=== PATIENT | female | born 1935 | race Caucasian/White ===

== ENCOUNTER → 2018-08-22 10:52 | Outpatient (CLI) | payer MEDICARE, SELFPAY ==
--- NOTE | 2018-08-22 | DI.US.S_ITS ---
PROCEDURE: US ABDOMEN COMPLETE INDICATIONS: EPIGASTRIC PAIN TECHNIQUE: Real-time scanning was performed of the abdominal and retroperitoneal organs, with image documentation. COMPARISON: None. FINDINGS: Liver: Liver is normal in size and homogeneous in echotexture. Gallbladder: Surgically absent. Biliary ducts: Intrahepatic bile ducts are non-dilated. Extrahepatic bile duct caliber measures 6.8 mm. Normal is 6-7 mm or less in diameter, or 10 mm or less post-cholecystectomy. Pancreas: Visualized portions of the pancreas are sonographically normal. Spleen: Spleen is normal in size and homogeneous in echotexture. Kidneys: Left kidney surgically absent. Normal right kidney measuring 11.1 cm. Aorta: Visualized aorta is normal in caliber at less than 3 cm. Iliacs: Proximal common iliac arteries are normal in caliber at less than 2.5 cm. IVC: Intrahepatic inferior vena cava is patent. Miscellaneous: No free abdominal fluid. IMPRESSION: No source for abdominal bloating and epigastric pain identified. Dictated by: Omega Wills [facility] Interpreted: Elicia Sierra MD on 08/22/2018 at 11:54 Approved by: Elicia Sierra MD, PhD on 08/22/2018 at 12:23
== END ==
PROVIDERS: Family Provider Family Medicine; PCP Family Medicine; Visit Provider Family Medicine
DX: R10.13 Epigastric pain (principal); Z90.49 Acquired absence of other specified parts of digestive tract
CPT/HCPCS: 76700

== ENCOUNTER → 2019-01-28 10:47 | Outpatient (CLI) | payer MEDICARE, SELFPAY ==
--- NOTE | 2019-01-28 10:49 | DI.RAD.S_ITS ---
PROCEDURE: FL UPPER GI W AIR INDICATIONS: dysphagia, reflux COMPARISON: None. FINDINGS: KUB: Preprocedural machine adjuster leader film demonstrates a normal bowel gas pattern. No suspicious abdominal calcifications. Visualized solid organ contours appear normal. Bony structures appear unremarkable. Esophagus: Esophageal mucosa is normal on air-contrast views. On single-contrast views, there is delayed esophageal peristalsis. No strictures, extrinsic mass effects, or diverticula. No hiatal hernia. There was spontaneous gastroesophageal reflux to the level of the lower third of the esophagus. Stomach: There is poor gaseous distention of the stomach. No gross mucosal masses or ulcers. Pylorus and duodenal bulb appear normal in morphology. Duodenal folds are grossly normal. Incidentally noted duodenal diverticulum IMPRESSION: Esophageal dysmotility. Spontaneous gastroesophageal reflux. Incidentally noted subcentimeter duodenal diverticulum Dictated by: Richy Moya M.D. on 01/28/2019 at 13:21 Approved by: Richy Moya M.D. on 01/28/2019 at 13:26
== END ==
PROVIDERS: PCP Family Medicine; Visit Provider Surgery
DX: R13.10 Dysphagia, unspecified (principal); K22.4 Dyskinesia of esophagus; K21.9 Gastro-esophageal reflux disease without esophagitis; K57.10 Diverticulosis of small intestine without perforation or abscess without bleeding
CPT/HCPCS: 74247

== ENCOUNTER 2019-04-06 16:10 | Emergency (ER) | payer MEDICARE, SELFPAY ==
[2019-04-06 16:33] VITALS: BP 184/91; PULSE 84; RESP 14; TEMP 37.1; O2SAT 99
--- NOTE | 2019-04-06 16:38 | ED.WEAKNESS ---
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 Her main concerns were generalized weakness, nausea, chills, dizziness which started 2.5-3 weeks ago, she felt worse last 3 days. 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 She reports she had small amount of diarrhea about twice a day for last 5 days. She denies blood in in stool but has been bothersome on her hemorrhoids. She also reports urinary urgency, frequency, feeling of incomplete bladder emptying, some discomfort in epigastric area and low abdomen. She had prescribed Keflex by at [facility] to use it as needed for her frequent UTI symptoms but she reports had not use the medication. Her current medication is bony ranitidine for the GERD, and GI dysmotility but has not taking this medication for last 2 days due to nausea. She denies fever, vomiting, flank pain, Chest pain, dyspnea. Related Data Home Medications Medication Instructions Recorded Confirmed VITAMIN D 400 iu PO #0 12/05/11 10/17/18 estradiol [Estrace] 1 gm VAGINAL #0 03/09/17 10/17/18 [CRANBERRY] #0 04/22/17 03/12/18 ascorbic acid (vitamin C) PO 10/17/18 10/17/18 d-mannose PO 10/17/18 10/17/18 ranitidine 150 mg tablet 150 mg PO BID tab 10/17/18 10/17/18 Allergies Allergy/AdvReac Type Severity Reaction Status Date / Time amoxicillin [AMOXICILLIN] Allergy Intermediate Nausea, Unverified 10/17/18 11:16 dizziness, fever ciprofloxacin [From CIPRO] Allergy Mild Unverified 10/17/18 11:16 codeine [CODEINE] Allergy Mild stomach Unverified 10/17/18 11:16 pain, dizzy nitrofurantoin Allergy Mild H/A ear Unverified 10/17/18 11:16 [NITROFURANTOIN] pound, sweats, nausea and vomit Sulfa (Sulfonamide Allergy Mild Rash Unverified 10/17/18 11:16 Antibiotics) [SULFA (SULFONAMIDE ANTIBIOTICS)] Review of Systems <JOSE Gold - Last Filed: 04/07/19 01:04> Review of Systems General: See HPI HEENT: Denies sinus pain, ear pain, sore throat, difficulty swallowing. Reports dizziness. Respiratory: Denies dyspnea, cough, wheezing, hemoptysis, sputum. Cardiovascular: Denies chest pain, palpitations, orthopnea, edema. Gastrointestinal: Reports nausea without vomiting, epigastric and low abdominal pain, samall diarrhea for 5 days. Denies melena. : See HPI Musculoskeletal: Denies weakness, joint pain or bony pain, flank pain. Skin: Denies rash, skin lesions, or other. Neurologic: Reports weakness. Denies headache, numbness, change in speech, confusion, seizures, incoordination. Psychiatric: No concerning psychosocial issues. 12-point review of systems is negative except for those stated above. PFSH <JOSE Gold - Last Filed: 04/07/19 01:04> Medical History Anemia (Chronic) Asthma (Chronic) Bronchiectasis (Chronic) CTS (carpal tunnel syndrome) (Chronic) Hayfever (Chronic) Hearing loss (Chronic 2013) Kidney disease (Chronic 2009) Liver disease (Chronic) Osteoarthritis (Chronic 2009) Osteopenia (Chronic) Rosacea (Chronic) Tinnitus (Chronic) Trigger finger (Chronic) Vertigo (Chronic) Vestibular neuritis (Chronic 2013) Abnormal CXR (chest x-ray) (Resolved 1996) Actinic keratosis (Resolved) Colon polyps (Resolved 2006) Ductal carcinoma of right breast (Resolved 1999) Mumps (Resolved) Pneumonia (Resolved) Solitary pulmonary nodule on lung CT (Resolved 1996) Surgical History Anesthesia (Resolved) History of breast surgery (Resolved 1999) History of kidney surgery (Resolved 2015) History of shoulder surgery (Resolved 1995) Status post cholecystectomy (Resolved 1972) Status post hysterectomy (Resolved 1991) Status post knee surgery (Resolved 1997) Family History Grandfather Heart disease Grandmother Heart disease Grandmother Heart disease Father Lung cancer Alcoholism Grandfather Diabetes mellitus Mother History of hip surgery Stroke Social History marital status: household members: none Smoking Status: Never smoker alcohol intake: never substance use type: does not use Family History Grandfather Heart disease Grandmother Heart disease Grandmother Heart disease Father Lung cancer Alcoholism Grandfather Diabetes mellitus Mother History of hip surgery Stroke Social History marital status: household members: none Smoking Status: Never smoker alcohol intake: never substance use type: does not use Exam <JOSE Gold - Last Filed: 04/07/19 01:04> Narrative Exam Narrative: GEN: Alert, oriented x 3, well appearing and nourished, and in no acute distress. Head: Normal cephalic, atraumatic. No scalp or temporal tenderness, palpable mass or rash. EYES: Pupils are equal, round, and reactive to light and accommodation. Extraocular muscles are intact bilaterally. There is no subconjunctival hemorrhage, exudate and sclera non-icteric. ENT: Hearing difficluty. Nose without bleeding, purulent discharge. Facial sinuses nontender to palpate. Mucous membrane dry, no mucosal lesion. Throat without erythema, tonsillar hypertrophy or exudate. Uvula in midline, airway patent. Neck: Trachea in midline. No JVD, non-tender without lymphadenopathy. No masses or thyroid megaly. Supple, non-tender and meningeal signs. CARDIAC: Normal regular rate and rhythm without murmurs, gallops, or rubs. No chest wall tenderness. No peripheral edema, cyanosis or pallor. Capillary refill is less than 2 seconds. No carotid bruits. RESPIRATORY: Lungs are cleat to auscultate bilaterally. No cough, wheezes, rales, or rhonchi. No stridor, respiratory distress, increase work of breathing, or accessary muscle used. ABD: Abdomen soft, nontender and non-distended. No guarding or rebound tenderness to palpate. Bowel sounds are normal in all 4 quadrants. There is no palpable masses or organomegaly. EXT: all extremities with no loss of sensation, strength, effusion or edema. SKIN: Warm, dry, normal color for patient. No erythema, lesions or rash. BACK: Nontender without deformity or crepitance. No flank tenderness. NEUROLOGICAL: Alert and oriented to place, time and person. Sensation and motor function intact bilaterally. No facial droops, dysphasia. PSYCHIATRIC: Good judgement and reason, without hallucinations, abnormal affect or abnormal behaviors during the examination. Patient is not suicidal. Initial Vital Signs Initial Vital Signs: Vital Signs Temperature 98.8 F 04/06/19 16:33 Pulse Rate 84 04/06/19 16:33 Respiratory Rate 14 04/06/19 16:33 Blood Pressure 184/91 H 04/06/19 16:33 Pulse Oximetry 99 04/06/19 16:33 <Sherri Stewart DO - Last Filed: 04/11/19 08:04> Initial Vital Signs Initial Vital Signs: Vital Signs Temperature 98.8 F 04/06/19 16:33 Pulse Rate 84 04/06/19 16:33 Respiratory Rate 14 04/06/19 16:33 Blood Pressure 184/91 H 04/06/19 16:33 Pulse Oximetry 99 04/06/19 16:33 Course <David TdJOSE - Last Filed: 04/07/19 01:04> Course Narrative: The patient was able to void small amount and provided urine sample. The patient reports nausea as mildly improved after a dose of Zofran 4 mg IV. Today's lab tests shows BUN of 71, creatinine is 7, with significantly decreased GFR of 5.6 as compared to her previous renal function test 2 years ago. Her potassium is 4.7 with CO2 23. Discussed patient's case with Dr. Stewart who is attending ED physician and considered transfer the patient to higher acuity setting hospital for for further nephrology evaluation and possible dialysis. Orders Ordered: Discontinued Medications Sodium Chloride (Normal Saline 0.9%) 1,000 mls @ 1,000 mls/hr IV BOLUS ONE Stop: 04/06/19 17:36 Last Infusion: 04/06/19 18:17 Dose: 1,000 mls/hr Admin: 04/06/19 17:29 Dose: 1,000 mls/hr Ondansetron HCl (Zofran) 4 mg IV NOW ONE Stop: 04/06/19 16:39 Last Admin: 04/06/19 17:29 Dose: 4 mg Vital Signs - 8 hr 04/06/19 18:43 Pulse Rate 80 Respiratory Rate 14 Blood Pressure [Right Arm] 178/80 H Pulse Oximetry 97 <Sherri Stewart DO - Last Filed: 04/11/19 08:04> Orders Ordered: Discontinued Medications Sodium Chloride (Normal Saline 0.9%) 1,000 mls @ 1,000 mls/hr IV BOLUS ONE Stop: 04/06/19 17:36 Last Infusion: 04/06/19 18:17 Dose: 1,000 mls/hr Admin: 04/06/19 17:29 Dose: 1,000 mls/hr Ondansetron HCl (Zofran) 4 mg IV NOW ONE Stop: 04/06/19 16:39 Last Admin: 04/06/19 17:29 Dose: 4 mg Vital Signs - 8 hr 04/06/19 18:43 Pulse Rate 80 Respiratory Rate 14 Blood Pressure [Right Arm] 178/80 H Pulse Oximetry 97 MDM - Weakness <JOSE Gold - Last Filed: 04/07/19 01:04> Differential Diagnosis Differential diagnosis: Likely sepsis, dehydration and other (UTI, Acute renal failure) Medical Records Attestation: I reviewed the patient's medical records. Lab Data Attestation: I reviewed the patient's lab results. Result diagrams: 04/06/19 16:45 04/06/19 16:45 Lab Results 04/06/19 04/06/19 04/06/19 Range/Units 16:45 16:45 16:50 WBC 4.9 (4.5-11.0) X10^3/uL RBC 3.77 L (4.0-5.2) X10^6/uL Hgb 11.5 L (12.0-16.0) g/dL Hct 34.2 L (36-46) % MCV 90.5 (80-100) fL MCH 30.5 (26-34) PG MCHC 33.7 (30-36) % RDW 15.2 H (11.6-14.8) % Plt Count 304 (150-400) X10^3/uL Neut % (Auto) 69.2 (50-75) % Lymph % (Auto) 18.1 L (25-40) % Knox % (Auto) 11.3 (3-14) % Eos % (Auto) 0.9 L (2-4) % Baso % (Auto) 0.5 (0-2) % Neut # (Auto) 3400 (6333-0195) /uL Lymph # (Auto) 900 L (8065-4023) /uL Knox # (Auto) 600 (0-900) /uL Eos # (Auto) 0 (0-450) /uL Baso # (Auto) 0 (0-100) /uL Sodium 136 L (137-145) mmol/L Potassium 4.7 (3.4-5.1) mmol/L Chloride 98 (98-107) mmol/L Carbon Dioxide 23 (22-32) mmol/L BUN 71 H (7-17) mg/dL Creatinine 7.00 H (0.52-1.04) mg/dL Estimated GFR 5.6 L (>60) mL/min BUN/Creatinine Ratio 10.1 (6-22) Glucose 99 (80-110) mg/dL Lactate 0.8 (0.7-2.1) mmol/L Calcium 9.5 (8.4-10.2) mg/dL Total Bilirubin 0.6 (0.2-1.3) mg/dL AST 38 H (14-36) IU/L ALT 10 (9-52) IU/L Alkaline Phosphatase 67 (38-126) U/L Total Protein 8.1 (6.3-8.2) g/dL Albumin 4.4 (3.5-5.0) g/dL Globulin 3.7 (1.7-4.1) g/dL Albumin/Globulin Ratio 1.2 (1.0-2.8) Imaging Data Abdominal x-ray: Radiologist's impression: Ct Fallon 83 F [address] [address] XRay Report Signed Patient: Ct Fallon [facility]#: [id number] : 1935cct:[id number] Age/Sex: 83 / FDate of Service: 04/06/19 Loc: ED Accession Number: [id number] Procedure: XR abdomen 3V Ordering Provider: David Appiah PROCEDURE: XR ABDOMEN 3V INDICATIONS: acute renal failure, weakness TECHNIQUE: One view chest and two views of the abdomen were acquired. COMPARISON: None. FINDINGS: Surgical changes and devices: Surgical clips in the right axilla and breast. Cholecystectomy clip. Chest: Lungs are hyperinflated and there is increased interstitial markings bilaterally consistent with emphysematous change. No consolidation identified. No obvious mass. No pleural effusion or pneumothorax. Heart size is within normal limits. The aortic arch is tortuous. Abdomen: Bowel gas pattern is nonobstructive. No suspicious calcifications. Visualized solid organ contours appear normal. Bones: No suspicious bony lesions. Mild lumbar spine scoliosis. IMPRESSION: 1. No acute cardiopulmonary abnormality. 2. Nonobstructive bowel gas pattern. Dictated by: Alan Gonzalez M.D. on 04/06/2019 at 19:31 Approved by: Alan Gonzalez M.D. on 04/06/2019 at 19:33 ECG Data Attestation: I personally reviewed and interpreted this ECG as follows: Prior ECG tracings: not available for review Interpretation: sinus rhythm rate at 79. borderline left axic deviation. no ST elevation or depressions. no ectopics. [facility] Narrative Medical decision making narrative: This is a 83 year old female patient presents with dizziness chills generalized weakness for last 2.5 to 3 weeks which became worse last 3 days so much that she has difficult time ambulating in the house. 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 She did not present with fever, vomiting. Today lab tests shows acute decreased in renal function and she already has only1 functioning kidney. 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 She has frequent UTI symptoms and has been followed by at [facility]. Her potassium level and CO2 are normal at this time. She was hydrated with 1 L of normal saline and medicated with Zofran for nausea which improved her symptoms a little. She voided twice while in ER about 200 mL after the hydration. ost void bladder scanner shows 67 ml per at bedside US. Her case was discussed with the [facility] hospitalist, Dr. Dietrich and she kindly accepted her transfer for further evaluation and treatment. She probably needs nephrology consult and possible renal ultrasound test. The plan of care was discussed with patient's 2 daughter at the bedside with the patient and all questions were answered and they agreed with the plan for transfer. <Sherri Stewart, DO - Last Filed: 04/11/19 08:04> Lab Data Lab Results 04/06/19 04/06/19 04/06/19 Range/Units 16:45 16:45 16:50 WBC 4.9 (4.5-11.0) X10^3/uL RBC 3.77 L (4.0-5.2) X10^6/uL Hgb 11.5 L (12.0-16.0) g/dL Hct 34.2 L (36-46) % MCV 90.5 (80-100) fL MCH 30.5 (26-34) PG MCHC 33.7 (30-36) % RDW 15.2 H (11.6-14.8) % Plt Count 304 (150-400) X10^3/uL Neut % (Auto) 69.2 (50-75) % Lymph % (Auto) 18.1 L (25-40) % Knox % (Auto) 11.3 (3-14) % Eos % (Auto) 0.9 L (2-4) % Baso % (Auto) 0.5 (0-2) % Neut # (Auto) 3400 (1743-6223) /uL Lymph # (Auto) 900 L (7743-7532) /uL Knox # (Auto) 600 (0-900) /uL Eos # (Auto) 0 (0-450) /uL Baso # (Auto) 0 (0-100) /uL Sodium 136 L (137-145) mmol/L Potassium 4.7 (3.4-5.1) mmol/L Chloride 98 (98-107) mmol/L Carbon Dioxide 23 (22-32) mmol/L BUN 71 H (7-17) mg/dL Creatinine 7.00 H (0.52-1.04) mg/dL Estimated GFR 5.6 L (>60) mL/min BUN/Creatinine Ratio 10.1 (6-22) Glucose 99 (80-110) mg/dL Lactate 0.8 (0.7-2.1) mmol/L Calcium 9.5 (8.4-10.2) mg/dL Total Bilirubin 0.6 (0.2-1.3) mg/dL AST 38 H (14-36) IU/L ALT 10 (9-52) IU/L Alkaline Phosphatase 67 (38-126) U/L Total Protein 8.1 (6.3-8.2) g/dL Albumin 4.4 (3.5-5.0) g/dL Globulin 3.7 (1.7-4.1) g/dL Albumin/Globulin Ratio 1.2 (1.0-2.8) Discharge Plan Departure Patient Disposition: [facility] Clinical Impression: Dehydration Acute renal failure Qualifiers: Acute renal failure type: unspecified Qualified Code(s): N17.9 - Acute kidney failure, unspecified Diarrhea Qualifiers: Diarrhea type: unspecified type Qualified Code(s): R19.7 - Diarrhea, unspecified Discharge Date/Time: 04/06/19 20:45 Interventions: ED Discharge Assessment Last Done: 04/06/19 21:03 Prescriptions: No Action VITAMIN D 400 iu PO Qty: 0 RF: 0 estradiol [Estrace] 0.01 % cream 1 gm Vaginal Qty: 0 RF: 0 [CRANBERRY] Qty: 0 RF: 0 ranitidine HCl [Acid Live Truck Operator (ranitidine)] 150 mg tablet 150 mg PO BID RF: 0 d-mannose PO RF: 0 ascorbic acid (vitamin C) PO RF: 0 Referrals: Huma Pérez MD [Primary Care Provider] - <Sherri Stewart DO - Last Filed: 04/11/19 08:04> Cosign ED Attending Robbiature Attestation: I was immediately available in the department for consultation. Documentation has been reviewed. I agree with assessment and plan.
[2019-04-06 16:55] LABS: Add Manual Diff / Slide Review NO; Basophils Absolute Auto 0 /uL (0-100); Basophils Percent Auto 0.5 % (0-2); Eosinophils Absolute Auto 0 /uL (0-450); Eosinophils Percent Auto 0.9 % (2-4); Hematocrit 34.2 % (36-46); Hemoglobin 11.5 g/dL (12.0-16.0); Lymphocytes Absolute Auto 900 /uL (1100-4500); Lymphocytes Percent Auto 18.1 % (25-40); Mean Corpuscular HGB Conc 33.7 % (30-36); Mean Corpuscular Hemoglobin 30.5 PG (26-34); Mean Corpuscular Volume 90.5 fL (80-100); Monocytes Absolute Auto 600 /uL (0-900); Monocytes Percent Auto 11.3 % (3-14); Neutrophils Absolute Auto 3400 /uL (1500-7000); Neutrophils Percent Auto 69.2 % (50-75); Platelet Count 304 X10^3/uL (150-400); Red Blood Cell Count 3.77 X10^6/uL (4.0-5.2); Red Cell Distribution Width 15.2 % (11.6-14.8); White Blood Cell Count 4.9 X10^3/uL (4.5-11.0)
[2019-04-06 17:05] LABS: Alanine Aminotransferase 10 IU/L (9-52); Albumin 4.4 g/dL (3.5-5.0); Albumin Globulin Ratio 1.2 (1.0-2.8); Alkaline Phosphatase 67 U/L (38-126); Aspartate Aminotransferase 38 IU/L (14-36); BUN Creatinine Ratio 10.1 (6-22); Bilirubin Total 0.6 mg/dL (0.2-1.3); Blood Urea Nitrogen 71 mg/dL (7-17); Calcium 9.5 mg/dL (8.4-10.2); Carbon Dioxide 23 mmol/L (22-32); Chloride 98 mmol/L (98-107); Estimated Glomerular Filt Rate 5.6 mL/min (>60); Globulin 3.7 g/dL (1.7-4.1); Glucose 99 mg/dL (80-110); HEMOLYSIS < 15 (0-50); Potassium 4.7 mmol/L (3.4-5.1); Sodium 136 mmol/L (137-145); Total Protein 8.1 g/dL (6.3-8.2)
[2019-04-06 17:15] LABS: Lactate (Lactic Acid) 0.8 mmol/L (0.7-2.1)
[2019-04-06] MEDS: ONDANSETRON 4 MG/2 ML INJ IV (17:29)
[2019-04-06] MEDS: SODIUM CHLORIDE 0.9% 1,000 ML 1000 ML IV (17:29)
--- NOTE | 2019-04-06 17:56 | ED_ITS ---
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 Her main concerns were generalized weakness, nausea, chills, dizziness which started 2.5-3 weeks ago, she felt worse last 3 days. 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 She reports she had small amount of diarrhea about twice a day for last 5 days. She denies blood in in stool but has been bothersome on her hemorrhoids. She also reports urinary urgency, frequency, feeling of incomplete bladder emptying, some discomfort in epigastric area and low abdomen. She had prescribed Keflex by at [facility] to use it as needed for her frequent UTI symptoms but she reports had not use the medication. Her current medication is bony ranitidine for the GERD, and GI dysmotility but has not taking this medication for last 2 days due to nausea. She denies fever, vomiting, flank pain, Chest pain, dyspnea. Related Data Home Medications Medication Instructions Recorded Confirmed VITAMIN D 400 iu PO #0 12/05/11 10/17/18 estradiol [Estrace] 1 gm VAGINAL #0 03/09/17 10/17/18 [CRANBERRY] #0 04/22/17 03/12/18 ascorbic acid (vitamin C) PO 10/17/18 10/17/18 d-mannose PO 10/17/18 10/17/18 ranitidine 150 mg tablet 150 mg PO BID tab 10/17/18 10/17/18 Allergies Allergy/AdvReac Type Severity Reaction Status Date / Time amoxicillin [AMOXICILLIN] Allergy Intermediate Nausea, Unverified 10/17/18 11:16 dizziness, fever ciprofloxacin [From CIPRO] Allergy Mild Unverified 10/17/18 11:16 codeine [CODEINE] Allergy Mild stomach Unverified 10/17/18 11:16 pain, dizzy nitrofurantoin Allergy Mild H/A ear Unverified 10/17/18 11:16 [NITROFURANTOIN] pound, sweats, nausea and vomit Sulfa (Sulfonamide Allergy Mild Rash Unverified 10/17/18 11:16 Antibiotics) [SULFA (SULFONAMIDE ANTIBIOTICS)] Review of Systems <JOSE Gold - Last Filed: 04/07/19 01:04> Review of Systems General: See HPI HEENT: Denies sinus pain, ear pain, sore throat, difficulty swallowing. Reports dizziness. Respiratory: Denies dyspnea, cough, wheezing, hemoptysis, sputum. Cardiovascular: Denies chest pain, palpitations, orthopnea, edema. Gastrointestinal: Reports nausea without vomiting, epigastric and low abdominal pain, samall diarrhea for 5 days. Denies melena. : See HPI Musculoskeletal: Denies weakness, joint pain or bony pain, flank pain. Skin: Denies rash, skin lesions, or other. Neurologic: Reports weakness. Denies headache, numbness, change in speech, confusion, seizures, incoordination. Psychiatric: No concerning psychosocial issues. 12-point review of systems is negative except for those stated above. PFSH <JOSE Gold - Last Filed: 04/07/19 01:04> Medical History Anemia (Chronic) Asthma (Chronic) Bronchiectasis (Chronic) CTS (carpal tunnel syndrome) (Chronic) Hayfever (Chronic) Hearing loss (Chronic 2013) Kidney disease (Chronic 2009) Liver disease (Chronic) Osteoarthritis (Chronic 2009) Osteopenia (Chronic) Rosacea (Chronic) Tinnitus (Chronic) Trigger finger (Chronic) Vertigo (Chronic) Vestibular neuritis (Chronic 2013) Abnormal CXR (chest x-ray) (Resolved 1996) Actinic keratosis (Resolved) Colon polyps (Resolved 2006) Ductal carcinoma of right breast (Resolved 1999) Mumps (Resolved) Pneumonia (Resolved) Solitary pulmonary nodule on lung CT (Resolved 1996) Surgical History Anesthesia (Resolved) History of breast surgery (Resolved 1999) History of kidney surgery (Resolved 2015) History of shoulder surgery (Resolved 1995) Status post cholecystectomy (Resolved 1972) Status post hysterectomy (Resolved 1991) Status post knee surgery (Resolved 1997) Family History Grandfather Heart disease Grandmother Heart disease Grandmother Heart disease Father Lung cancer Alcoholism Grandfather Diabetes mellitus Mother History of hip surgery Stroke Social History marital status: household members: none Smoking Status: Never smoker alcohol intake: never substance use type: does not use Family History Grandfather Heart disease Grandmother Heart disease Grandmother Heart disease Father Lung cancer Alcoholism Grandfather Diabetes mellitus Mother History of hip surgery Stroke Social History marital status: household members: none Smoking Status: Never smoker alcohol intake: never substance use type: does not use Exam <JOSE Gold - Last Filed: 04/07/19 01:04> Narrative Exam Narrative: GEN: Alert, oriented x 3, well appearing and nourished, and in no acute distress. Head: Normal cephalic, atraumatic. No scalp or temporal tenderness, palpable mass or rash. EYES: Pupils are equal, round, and reactive to light and accommodation. Extraocular muscles are intact bilaterally. There is no subconjunctival he morrhage, exudate and sclera non-icteric. ENT: Hearing difficluty. Nose without bleeding, purulent discharge. Facial sinuses nontender to palpate. Mucous membrane dry, no mucosal lesion. Throat w ithout erythema, tonsillar hypertrophy or exudate. Uvula in midline, airway patent. Neck: Trachea in midline. No JVD, non-tender without lymphadenopathy. No masses or thyroid megaly. Supple, non-tender and meningeal signs. CARDIAC: Normal regular rate and rhythm without murmurs, gallops, or rubs. No chest wall tenderness. No peripheral edema, cyanosis or pallor. Capillary refill is less than 2 seconds. No carotid bruits. RESPIRATORY: Lungs are cleat to auscultate bilaterally. No cough, wheezes, rales, or rhonchi. No stridor, respiratory distress, increase work of breathing, or accessary muscle used. ABD: Abdomen soft, nontender and non-distended. No guarding or rebound tendern ess to palpate. Bowel sounds are normal in all 4 quadrants. There is no palpable masses or organomegaly. EXT: all extremities with no loss of sensation, strength, effusion or edema. SKIN: Warm, dry, normal color for patient. No erythema, lesions or rash. BACK: Nontender without deformity or crepitance. No flank tenderness. NEUROLOGICAL: Alert and oriented to place, time and person. Sensation and motor function intact bilaterally. No facial droops, dysphasia. PSYCHIATRIC: Good judgement and reason, without hallucinations, abnormal affect or abnormal behaviors during the examination. Patient is not suicidal. Initial Vital Signs Initial Vital Signs: Vital Signs Temperature 98.8 F 04/06/19 16:33 Pulse Rate 84 04/06/19 16:33 Respiratory Rate 14 04/06/19 16:33 Blood Pressure 184/91 H 04/06/19 16:33 Pulse Oximetry 99 04/06/19 16:33 <Sherri Stewart DO - Last Filed: 04/11/19 08:04> Initial Vital Signs Initial Vital Signs: Vital Signs Temperature 98.8 F 04/06/19 16:33 Pulse Rate 84 04/06/19 16:33 Respiratory Rate 14 04/06/19 16:33 Blood Pressure 184/91 H 04/06/19 16:33 Pulse Oximetry 99 04/06/19 16:33 Course <JOSE Gold - Last Filed: 04/07/19 01:04> Course Narrative: The patient was able to void small amount and provided urine sample. The patient reports nausea as mildly improved after a dose of Zofran 4 mg IV. Today's lab tests shows BUN of 71, creatinine is 7, with significantly decreased GFR of 5.6 as compared to her previous renal function test 2 years ago. Her potassium is 4.7 with CO2 23. Discussed patient's case with Dr. Stewart who is attending ED physician and considered transfer the patient to higher acuity setting hospital for for further nephrology evaluation and possible dialysis. Orders Ordered: Discontinued Medications Sodium Chloride (Normal Saline 0.9%) 1,000 mls @ 1,000 mls/hr IV BOLUS ONE Stop: 04/06/19 17:36 Last Infusion: 04/06/19 18:17 Dose: 1,000 mls/hr Admin: 04/06/19 17:29 Dose: 1,000 mls/hr Ondansetron HCl (Zofran) 4 mg IV NOW ONE Stop: 04/06/19 16:39 Last Admin: 04/06/19 17:29 Dose: 4 mg Vital Signs - 8 hr 04/06/19 18:43 Pulse Rate 80 Respiratory Rate 14 Blood Pressure [Right Arm] 178/80 H Pulse Oximetry 97 <Sherri Stewart DO - Last Filed: 04/11/19 08:04> Orders Ordered: Discontinued Medications Sodium Chloride (Normal Saline 0.9%) 1,000 mls @ 1,000 mls/hr IV BOLUS ONE Stop: 04/06/19 17:36 Last Infusion: 04/06/19 18:17 Dose: 1,000 mls/hr Admin: 04/06/19 17:29 Dose: 1,000 mls/hr Ondansetron HCl (Zofran) 4 mg IV NOW ONE Stop: 04/06/19 16:39 Last Admin: 04/06/19 17:29 Dose: 4 mg Vital Signs - 8 hr 04/06/19 18:43 Pulse Rate 80 Respiratory Rate 14 Blood Pressure [Right Arm] 178/80 H Pulse Oximetry 97 MDM - Weakness <JOSE Gold - Last Filed: 04/07/19 01:04> Differential Diagnosis Differential diagnosis: Likely sepsis, dehydration and other (UTI, Acute renal failure) Medical Records Attestation: I reviewed the patient's medical records. Lab Data Attestation: I reviewed the patient's lab results. Result diagrams: 04/06/19 16:45 04/06/19 16:45 Lab Results 04/06/19 04/06/19 04/06/19 Range/Units 16:45 16:45 16:50 WBC 4.9 (4.5-11.0) X10^3/uL RBC 3.77 L (4.0-5.2) X10^6/uL Hgb 11.5 L (12.0-16.0) g/dL Hct 34.2 L (36-46) % MCV 90.5 (80-100) fL MCH 30.5 (26-34) PG MCHC 33.7 (30-36) % RDW 15.2 H (11.6-14.8) % Plt Count 304 (150-400) X10^3/uL Neut % (Auto) 69.2 (50-75) % Lymph % (Auto) 18.1 L (25-40) % [place] % (Auto) 11.3 (3-14) % Eos % (Auto) 0.9 L (2-4) % Baso % (Auto) 0.5 (0-2) % Neut # (Auto) 3400 (4184-5983) /uL Lymph # (Auto) 900 L (1495-6079) /uL [place] # (Auto) 600 (0-900) /uL Eos # (Auto) 0 (0-450) /uL Baso # (Auto) 0 (0-100) /uL Sodium 136 L (137-145) mmol/L Potassium 4.7 (3.4-5.1) mmol/L Chloride 98 (98-107) mmol/L Carbon Dioxide 23 (22-32) mmol/L BUN 71 H (7-17) mg/dL Creatinine 7.00 H (0.52-1.04) mg/dL Estimated GFR 5.6 L (>60) mL/min BUN/Creatinine Ratio 10.1 (6-22) Glucose 99 (80-110) mg/dL Lactate 0.8 (0.7-2.1) mmol/L Calcium 9.5 (8.4-10.2) mg/dL Total Bilirubin 0.6 (0.2-1.3) mg/dL AST 38 H (14-36) IU/L ALT 10 (9-52) IU/L Alkaline Phosphatase 67 (38-126) U/L Total Protein 8.1 (6.3-8.2) g/dL Albumin 4.4 (3.5-5.0) g/dL Globulin 3.7 (1.7-4.1) g/dL Albumin/Globulin Ratio 1.2 (1.0-2.8) Imaging Data Abdominal x-ray: Radiologist's impression: Ct Fallon 83 F [address] [address] XRay Report Signed Patient: Ct Fallon [facility]#: [id number] : 1936Acct:[id number] Age/Sex: 83 / FDate of Service: 04/06/19 Loc: ED Accession Number: [id number] Procedure: XR abdomen 3V Ordering Provider: David Appiah PROCEDURE: XR ABDOMEN 3V INDICATIONS: acute renal failure, weakness TECHNIQUE: One view chest and two views of the abdomen were acquired. COMPARISON: None. FINDINGS: Surgical changes and devices: Surgical clips in the right axilla and breast. Cholecystectomy clip. Chest: Lungs are hyperinflated and there is increased interstitial markings bilaterally consistent with emphysematous change. No consolidation identified. No obvious mass. No pleural effusion or pneumothorax. Heart size is within normal limits. The aortic arch is tortuous. Abdomen: Bowel gas pattern is nonobstructive. No suspicious calcifications. Visualized solid organ contours appear normal. Bones: No suspicious bony lesions. Mild lumbar spine scoliosis. IMPRESSION: 1. No acute cardiopulmonary abnormality. 2. Nonobstructive bowel gas pattern. Dictated by: Alan Gonzalez M.D. on 04/06/2019 at 19:31 Approved by: Alan Gonzalez M.D. on 04/06/2019 at 19:33 ECG Data Attestation: I personally reviewed and interpreted this ECG as follows: Prior ECG tracings: not available for review Interpretation: sinus rhythm rate at 79. borderline left axic deviation. no ST elevation or depressions. no ectopics. MDM Narrative Medical decision making narrative: This is a 83 year old female patient presents with dizziness chills generalized weakness for last 2.5 to 3 weeks which became worse last 3 days so much that she has difficult time ambulating in the house. 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 She did not present with fever, vomiting. Today lab tests shows acute decreased in renal function and she already has only1 functioning kidney. 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 She has frequent UTI symptoms and has been followed by at [facility]. Her potassium level and CO2 are normal at this time. She was hydrated with 1 L of normal saline and medicated with Zofran for nausea which improved her symptoms a little. She voided twice while in ER about 200 mL after the hydration. ost void bladder scanner shows 67 ml per at bedside US. Her case was discussed with the [facility] hospitalist, Dr. Dietrich and she kindly accepted her transfer for further evaluation and treatment. She probably needs nephrology consult and possible renal ultrasound test. The plan of care was discussed with patient's 2 daughter at the bedside with the patient and all questions were answered and they agreed with the plan for transfer. <Sherri Stewart, DO - Last Filed: 04/11/19 08:04> Lab Data Lab Results 04/06/19 04/06/19 04/06/19 Range/Units 16:45 16:45 16:50 WBC 4.9 (4.5-11.0) X10^3/uL RBC 3.77 L (4.0-5.2) X10^6/uL Hgb 11.5 L (12.0-16.0) g/dL Hct 34.2 L (36-46) % MCV 90.5 (80-100) fL MCH 30.5 (26-34) PG MCHC 33.7 (30-36) % RDW 15.2 H (11.6-14.8) % Plt Count 304 (150-400) X10^3/uL Neut % (Auto) 69.2 (50-75) % Lymph % (Auto) 18.1 L (25-40) % [place] % (Auto) 11.3 (3-14) % Eos % (Auto) 0.9 L (2-4) % Baso % (Auto) 0.5 (0-2) % Neut # (Auto) 3400 (5042-3306) /uL Lymph # (Auto) 900 L (1309-6879) /uL [place] # (Auto) 600 (0-900) /uL Eos # (Auto) 0 (0-450) /uL Baso # (Auto) 0 (0-100) /uL Sodium 136 L (137-145) mmol/L Potassium 4.7 (3.4-5.1) mmol/L Chloride 98 (98-107) mmol/L Carbon Dioxide 23 (22-32) mmol/L BUN 71 H (7-17) mg/dL Creatinine 7.00 H (0.52-1.04) mg/dL Estimated GFR 5.6 L (>60) mL/min BUN/Creatinine Ratio 10.1 (6-22) Glucose 99 (80-110) mg/dL Lactate 0.8 (0.7-2.1) mmol/L Calcium 9.5 (8.4-10.2) mg/dL Total Bilirubin 0.6 (0.2-1.3) mg/dL AST 38 H (14-36) IU/L ALT 10 (9-52) IU/L Alkaline Phosphatase 67 (38-126) U/L Total Protein 8.1 (6.3-8.2) g/dL Albumin 4.4 (3.5-5.0) g/dL Globulin 3.7 (1.7-4.1) g/dL Albumin/Globulin Ratio 1.2 (1.0-2.8) Discharge Plan Departure Patient Disposition: [facility] Clinical Impression: Dehydration Acute renal failure Qualifiers: Acute renal failure type: unspecified Qualified Code(s): N17.9 - Acute kidney failure, unspecified Diarrhea Qualifiers: Diarrhea type: unspecified type Qualified Code(s): R19.7 - Diarrhea, unsp ecified Discharge Date/Time: 04/06/19 20:45 Interventions: ED Discharge Assessment Last Done: 04/06/19 21:03 Prescriptions: No Action VITAMIN D 400 iu PO Qty: 0 RF: 0 estradiol [Estrace] 0.01 % cream 1 gm Vaginal Qty: 0 RF: 0 [CRANBERRY] Qty: 0 RF: 0 ranitidine HCl [[employer] (ranitidine)] 150 mg tablet 150 mg PO BID RF: 0 d-mannose PO RF: 0 ascorbic acid (vitamin C) PO RF: 0 Referrals: Huma Pérez MD [Primary Care Provider] - <Sherri Stewart DO - Last Filed: 04/11/19 08:04> Cosign ED Attending Robbiature Attestation: I was immediately available in the department for consultation. Documentation has been reviewed. I agree with assessment and plan.
[2019-04-06 18:43] VITALS: BP 178/80; PULSE 80; RESP 14; O2SAT 97
--- NOTE | 2019-04-06 18:43 | DI.RAD.S_ITS ---
PROCEDURE: XR ABDOMEN 3V INDICATIONS: acute renal failure, weakness TECHNIQUE: One view chest and two views of the abdomen were acquired. COMPARISON: None. FINDINGS: Surgical changes and devices: Surgical clips in the right axilla and breast. Cholecystectomy clip. Chest: Lungs are hyperinflated and there is increased interstitial markings bilaterally consistent with emphysematous change. No consolidation identified. No obvious mass. No pleural effusion or pneumothorax. Heart size is within normal limits. The aortic arch is tortuous. Abdomen: Bowel gas pattern is nonobstructive. No suspicious calcifications. Visualized solid organ contours appear normal. Bones: No suspicious bony lesions. Mild lumbar spine scoliosis. IMPRESSION: 1. No acute cardiopulmonary abnormality. 2. Nonobstructive bowel gas pattern. Dictated by: Alan Gonzalez M.D. on 04/06/2019 at 19:31 Approved by: Alan Gonzalez M.D. on 04/06/2019 at 19:33
--- NOTE | 2019-04-06 21:02 | PC.NURSE ---
Report called to Emily Duarte.
== END 2019-04-06 20:45 | disposition short-term general hospital (02) ==
PROVIDERS: Emergency Provider Nurse Practitioner Family; PCP Family Medicine
DX: E86.0 Dehydration (principal); N17.9 Acute kidney failure, unspecified; R19.7 Diarrhea, unspecified; R10.13 Epigastric pain
CPT/HCPCS: 36415; 36591; 51798; 74021; 80053; 83605; 85025; 87040; 93005; 93041; 96361; 96374; 99283; 99285; J2405

== ENCOUNTER → 2019-04-16 12:31 | Outpatient (CLI) | payer MEDICARE, SELFPAY ==
--- NOTE | 2019-04-16 | DI.RAD.S_ITS ---
PROCEDURE: FL NEPHROSTOMY PYELOGRAM COMPARISON: [facility], CR, XR ABDOMEN 3V, 04/06/2019, 18:57. Also, [facility] urinary tract imaging from late March is reviewed, which documents placement of a double pigtail right ureteral stent and percutaneous nephrostomy tube on the right. The patient reports prior left nephrectomy. INDICATIONS: Hydronephrosis with renal and ureteral calculous FINDINGS: Water-soluble nonionic contrast was utilized for this study, instilled carefully during fluoroscopic visualization of the right-sided percutaneous nephrostomy tube, the right kidney area, and the double pigtail right ureteral catheter extending from the renal pelvis area of the right kidney to the bladder on the right. Over the course of this study it was observed that the right urinary tract remains mildly dilated but improved from the prior imaging, and the patient reports excellent urinary outflow through the percutaneous nephrostomy tube. The double pigtail right ureteral catheter, however, shows no transit of the radiodense contrast from the collecting system inferiorly towards the bladder. Additionally, there is no contrast seen extending along the margins of the right ureteral stent through the [place] ureter towards the bladder either. 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 Excellent patency of the percutaneous nephrostomy tube from right flank area. At termination of the study the contrast was drained from the right urinary tract and the percutaneous nephrostomy tube was returned to gravity drainage into the external urine collection bag. Subsequently Dr. Bateman was called and the findings were discussed in detail. Dictated by: Gary Honeycutt M.D. on 04/16/2019 at 13:59 Approved by: Gary Honeycutt M.D. on 04/16/2019 at 14:04
== END ==
PROVIDERS: PCP Family Medicine; Visit Provider Specialist
DX: N13.2 Hydronephrosis with renal and ureteral calculous obstruction (principal); Z93.6 Other artificial openings of urinary tract status
CPT/HCPCS: 74425